=== PATIENT | male | born 1955 | race Caucasian/White ===

== ENCOUNTER 2016-11-10 17:09 | Outpatient (CLI) | payer MEDICAID | END 2016-11-10 17:10 | disposition home or self-care (01) | DX: I10 Essential (primary) hypertension (principal) ==

== ENCOUNTER 2018-01-17 15:15 | Outpatient (CLI) | payer MEDICAID | END 2018-01-17 15:30 | disposition home or self-care (01) | LOC: RT.N 15:15 | PROVIDERS: ATTEND Physician Assistant Medical | DX: R06.02 Shortness of breath (principal); R01.1 Cardiac murmur, unspecified | CPT/HCPCS: 93005 ==

== ENCOUNTER 2018-01-18 08:00 | Outpatient (CLI) | payer MEDICAID ==
[2018-01-18 18:48] LABS: HGB - HEMOGLOBIN 15.3 g/dL (14.0-18.0); MEAN CORPUSCULAR HEMOGLOBIN 30.4 pg (27.0-31.0); MEAN CORPUSCULAR VOLUME 91.9 fL (80.0-94.0); MEAN PLATELET VOLUME 11.3 fL (7.4-11.4); RED BLOOD COUNT 5.03 10^6/uL (4.70-6.10); RED CELL DISTRIBUTION WIDTH 12.9 % (12.0-15.0); WHITE BLOOD COUNT 7.5 x10^3/uL (4.8-10.8)
[2018-01-18 19:22] LABS: CALCIUM 8.8 mg/dL (8.5-10.3); CREATININE 0.8 mg/dL (0.6-1.2)
== END 2018-01-18 08:01 | disposition home or self-care (01) ==
LOC: LAB.N 08:00
PROVIDERS: ATTEND Physician Assistant Medical
DX: R06.02 Shortness of breath (principal); R01.1 Cardiac murmur, unspecified
CPT/HCPCS: 36415; 80048; 83880; 85027

== ENCOUNTER 2018-02-03 12:51 | Outpatient (CLI) | payer MEDICAID | END 2018-02-03 12:52 | disposition home or self-care (01) | LOC: DI 12:51 | PROVIDERS: ATTEND Physician Assistant Medical | DX: R06.02 Shortness of breath (principal); R01.1 Cardiac murmur, unspecified; I10 Essential (primary) hypertension; Z95.1 Presence of aortocoronary bypass graft; I51.7 Cardiomegaly | CPT/HCPCS: 93306 ==

== ENCOUNTER 2018-03-10 11:31 | Outpatient (CLI) | payer MEDICAID ==
--- NOTE | 2018-03-10 11:57 | XRAY Report ---
Procedure Date: 03/10/2018 Accession Number: [id number] Procedure: XRN - Chest 2 View X-Ray CPT Code: 00044 FULL RESULT: EXAM: Chest 2 View X-Ray DATE: 03/10/2018 11:47 AM CLINICAL HISTORY: SOB COMPARISON: None. TECHNIQUE: 2 views. FINDINGS: Lungs/Pleura: No focal opacities evident. No pneumothorax or pleural effusion. Normal volumes. Mediastinum: Mild cardiomegaly. Postoperative changes of cardiac surgery. Other: None. IMPRESSION: Mild cardiomegaly, but no evidence of acute cardiopulmonary disease. [facility]
== END 2018-03-10 11:32 | disposition home or self-care (01) ==
LOC: DI.N 11:31
PROVIDERS: ATTEND Physician Assistant Medical
DX: R05 Cough (principal); R06.02 Shortness of breath; I51.7 Cardiomegaly
CPT/HCPCS: 71046

== ENCOUNTER 2018-03-16 15:22 | Outpatient (CLI) | payer MEDICAID | END 2018-03-16 15:23 | disposition home or self-care (01) | LOC: LAB.N 15:22 | PROVIDERS: ATTEND Physician Assistant Medical | DX: R06.02 Shortness of breath (principal) | CPT/HCPCS: 36415; 85379 ==

== ENCOUNTER 2018-04-20 13:29 | Outpatient (CLI) | payer MEDICAID ==
[2018-04-20] MEDS ORDERED: ALBUTEROL NEB 2.5 MG/3 ML INH ONE (14:00)
== END 2018-04-20 13:30 | disposition home or self-care (01) ==
LOC: RT 13:29
PROVIDERS: ATTEND Physician Assistant Medical
DX: I25.10 Atherosclerotic heart disease of native coronary artery without angina pectoris (principal); R06.2 Wheezing; R05 Cough; R06.02 Shortness of breath
CPT/HCPCS: 94010